=== PATIENT | male | born 1980 ===

== ENCOUNTER → 2017-11-17 | Outpatient (CLI) | payer BC ==
--- NOTE | 2017-11-17 09:34 | Diagnostic Imaging Report ---
Indication:Abdominal pain Technique: Grayscale and duplex Doppler imaging of the abdomen performed. Comparison: None Findings: The liver is normal in echogenicity and measures about 17 cm which is somewhat prominent. The gallbladder is unremarkable. The demonstrated part of the pancreas, aorta and IVC show no abnormalities. Both kidneys appear unremarkable. The spleen is enlarged measuring between 13 and 14 cm. There is no biliary ductal dilatation identified. Doppler evaluation of the main portal vein shows patency. There is no ascites. No hydronephrosis seen. Impression: Mild hepatosplenomegaly.
== END | disposition home or self-care (01) ==
LOC: ULS 08:33
DX: E80.6 Other disorders of bilirubin metabolism (principal)
CPT/HCPCS: 76700